=== PATIENT | male | born 2005 | race Caucasian/White ===

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

== ENCOUNTER 2023-02-18 00:24 | Day surgery (SDC) | payer BC, SELFPAY ==
[2023-02-06 14:53] VITALS: BMI 24.1
--- NOTE | 2023-02-14 08:29 | SUR.PREOP ---
Patient called regarding upcoming procedure. Spoke with pt's Mom. Reviewed preop instructions, appointment times, and procedure prep.
--- NOTE | 2023-02-14 12:49 | PM.HPGS ---
History of Present Illness History of Present Illness Consent: Risks, benefits, and alternatives have been discussed and questions answered. Patient agrees to proceed with procedure. Chief complaint: change in bowel habit, constipation, Narrative: Alber Segal is a 17 year old male who complains of Bright red blood per rectum for the past 8-9 months. States he has blood on the tissue and in the toilet. Rectal bleeding occurs only with BM and typically resolves on its own. He is occasionally constipated but not necessarily when he passes blood. he has not had abdominal pain. There is no family history of inflammatory bowel disease. Review of Systems Review of Systems: All systems reviewed & are unremarkable except as noted in HPI and below PMFSH Past Medical History Medical History Bloating Change in bowel habits Constipation Social History Social History Smoking status: Never smoker Alcohol intake: current Alcohol use details: 2-3 times per month Substance use: current Substance use type: marijuana Other substance usage details: once monthly smoke marijuana; CBD liquid 2 x weekly Living arrangements: with family Spiritual care concerns: No Meds Home Medications and Allergies Home Medications Medication Instructions Recorded Confirmed Type hydrocortisone 2.5 % topical cream 1 applic RECTAL BID PRN rectal 02/05/23 02/18/23 Rx with perineal applicator bleeding #30 grams magnesium 200 mg tablet 200 mg PO DAILY 02/06/23 02/18/23 History multivitamin with minerals-folic 0.4 tablet PO DAILY 02/06/23 02/18/23 History acid 0.4 mg tablet Allergies Allergy/AdvReac Type Severity Reaction Status Date / Time Cephalosporins Allergy Mild Unknown Verified 02/18/23 06:49 clavulanic acid Allergy Mild Unknown Verified 02/18/23 06:49 measles, mumps, and rubella Allergy Mild Unknown Verified 02/18/23 07:02 vaccine amoxicillin Allergy Unknown Unknown Verified 02/18/23 06:49 cefdinir Allergy Unknown Unknown Verified 02/18/23 06:49 clarithromycin Allergy Unknown Unknown Verified 02/18/23 06:49 Penicillins Allergy Unknown Unknown Verified 02/18/23 06:49 BETALACTAMASEIN Allergy Mild Unknown Uncoded 02/18/23 06:49 Exam Resp: Auscultation: clear to auscultation bilaterally Cardio: Rate: regular rate Rhythm: regular rhythm GI: GI Palp: Yes Soft to palpation and No Tenderness to palpation present (GI) Assessment and Plan Assessment and plan (1) Blood in stool: Code(s): K92.1 - Melena Status: Acute Assessment and Plan: Colonoscopy with possible biopsy or polypectomy or cautery or injection of substances.
[2023-02-18 06:52] VITALS: BP 118/64; PULSE 63; RESP 16; TEMP 36.5; O2SAT 100; BMI 25.0
[2023-02-18] MEDS: LACTATED RINGERS 1,000 ML 150 ML IV CONT (07:05)
--- NOTE | 2023-02-18 07:28 | P.PNAN_ITS ---
Anes - Initial Pre Proc Eval Procedure: Operation Date: 02/18/23 08:00 Proposed Procedures p Colonoscopy - Jas London MD Date/Time: 02/18/23 07:28 Surgeon: Jas London MD Pre Op Diagnosis: change in bowel habit, constipation, Patient Data Age: 17 Gender: M Height: 1.78 m Weight: 79.1 kg Last Vital Signs Temp 97.7 F 02/18/23 06:52 Pulse 63 02/18/23 06:52 Resp 16 02/18/23 06:52 BP 118/64 02/18/23 06:52 Pulse Ox 100 02/18/23 06:52 O2 Del Method Room Air 02/18/23 06:52 Allergies Allergy/AdvReac Type Severity Reaction Status Date / Time Cephalosporins Allergy Mild Unknown Verified 02/18/23 06:49 clavulanic acid Allergy Mild Unknown Verified 02/18/23 06:49 measles, mumps, and rubella Allergy Mild Unknown Verified 02/18/23 07:02 vaccine amoxicillin Allergy Unknown Unknown Verified 02/18/23 06:49 cefdinir Allergy Unknown Unknown Verified 02/18/23 06:49 clarithromycin Allergy Unknown Unknown Verified 02/18/23 06:49 Penicillins Allergy Unknown Unknown Verified 02/18/23 06:49 BETALACTAMASEIN Allergy Mild Unknown Uncoded 02/18/23 06:49 Home Medications Medication Instructions Recorded Confirmed Type hydrocortisone 2.5 % topical cream 1 applic RECTAL BID PRN rectal 02/05/23 02/18/23 Rx with perineal applicator bleeding #30 grams magnesium 200 mg tablet 200 mg PO DAILY 02/06/23 02/18/23 History multivitamin with minerals-folic 0.4 tablet PO DAILY 02/06/23 02/18/23 History acid 0.4 mg tablet Patient hx anesthesia problems: none Family hx anesthesia problems: none Results Review: All pre-operative results and documents have been reviewed as part of the pre- operative evaluation. [facility] Past Medical History Medical History Bloating Change in bowel habits Constipation Social History Social History Smoking status: Never smoker Alcohol intake: current Alcohol use details: 2-3 times per month Substance use: current Substance use type: marijuana Other substance usage details: once monthly smoke marijuana; CBD liquid 2 x weekly Living arrangements: with family Spiritual care concerns: No Anes - Eval Final PreProcedure Day of Procedure 02/18/23 07:28 Patient weight: normal Heart: regular rate and rhythm Lungs: clear to auscultation Airway: Mallampati scale class II Neurological: alert and oriented Last oral intake: >/= 8 hours ASA classification: I Emergent: no Anesthetic plan: proceed Anesthesia type and monitoring: general GIVS and standard monitoring Results Review: All pre-operative results and documents have been reviewed as part of the pre- operative evaluation. Informed Consent: The patient's anesthetic plan and its attendant risks and benefits were discussed with the patient/family/POA. Questions were solicited and answers provided to the satisfaction of the patient/family/POA.
[2023-02-18 08:11] VITALS: BP 88/53; PULSE 60; RESP 15; O2SAT 100
[2023-02-18 08:21] VITALS: BP 96/72; PULSE 58; RESP 20; O2SAT 100
[2023-02-18 08:31] VITALS: BP 116/82; PULSE 71; RESP 18; O2SAT 100
== END 2023-02-18 08:38 | disposition home or self-care (01) ==
PROVIDERS: PCP Pediatrics; Visit Provider Internal Medicine Gastroenterology
PROC: 0DJD8ZZ Inspection of Lower Intestinal Tract, Via Natural or Artificial Opening Endoscopic (ICD-10-PCS; CPT 45378; principal; 2023-02-18 08:00)
DX: K64.8 Other hemorrhoids (principal); F12.90 Cannabis use, unspecified, uncomplicated
CPT/HCPCS: 45378; J2001; J2704; J7120

== ENCOUNTER 2024-07-13 12:15 | Outpatient (CLI) | payer BC, SELFPAY ==
--- NOTE | ~2024-07-13 | US_ITS ---
TESTICULAR ULTRASOUND (Doppler ultrasound interrogation techniques used as needed for this exam.) Ordering provider: Nika Madrid, FAN History: . LEFT TESTICULAR PAIN . Comparison: None. FINDINGS: TESTICLES: Normal in size. The right measures 4.1x 2.9x 2 cm and the left measures 3.6x 3.5x 2.2 cm. Normal echogenicity bilaterally without mass lesion. Increased vascularity is seen in the left side. EPIDIDYMIDES: Normal in size. The right measures 0.9 cm and the left 0.8 cm. Normal echogenicity bila terally. Increased vascularity is seen in the left side. HYDROCELE: None. VARICOCELE: None. OTHER ABNORMALITY: None seen. IMPRESSION: Left epididymoorchitis. Clinical correlation advised. Otherwise, normal testicular ultrasound. Reviewed, dictated and finalized at location A. IMPRESSION: Left epididymoorchitis. Clinical correlation advised. Otherwise, normal testicu lar ultrasound.
== END 2024-07-13 12:16 | disposition home or self-care (01) ==
PROVIDERS: PCP Physician Assistant; Visit Provider Physician Assistant
DX: N45.3 Epididymo-orchitis (principal)
CPT/HCPCS: 76870; 93976